=== PATIENT | male | born 1950 | race Caucasian/White ===

== ENCOUNTER → 2018-11-17 07:54 | Outpatient (CLI) | payer MEDICARE, SELFPAY ==
--- NOTE | 2018-11-17 08:30 | CT_ITS ---
CT lung screening EXAM: CT LUNG LOW DOSE WO CONTRAST HISTORY: Greater than 100 pack-year smoking history asymptomatic for lung cancer ITS.REASON: HX TOBACCO USE ORDERING PHYSICIAN: Levi Waggoner MD PATIENT AGE: 68 years COMPARISON: None TECHNIQUE: The exam was performed on a GE Light Speed [address] scanner using 2.90 mGy CTDI. A low dose helical CT CHEST was performed on a multi-detector scanner. All CT scans at the facility use one or more dose reduction, viz: automated exposure control, ma/kV adjustment per patient size (including targeted exams where dose is matched to indication, i.e. head), or iterative reconstruction technique. The LDCT was performed in a facility that meets the criteria for the screening program. Data regarding this exam was submitted to ACR which is an approved registry. The order for this exam indicates that it came as a result of a lung cancer screening counseling shard decision-making visit that included all the elements required of such a visit including smoking cessation. The radiologist interpreting this exam meets the CMS criteria for the LDCT lung cancer screening program. The exam is reported using the Lung-RADS classification scale and reported to the ACR registry. NOTE: This study was performed for the specific purposes of lung cancer screening and is not an alternative to diagnostic chest CT. RADIATION DOSE: CTDI vol(CT dose Index-volume) = 2.90mG DLP (Dose Length Product) = 111.51 mGcm FINDINGS: Scattered small mediastinal lymph nodes are present some of which contain calcification. The largest node is 1.5 x 1.3 cm. coronary artery calcifications are present. Fibrotic changes are present in the lung bases. Calcified granuloma right middle lobe. No suspicious nodules. COPD IMPRESSION: 1. Lung RADS Category: 2, benign 2. Other findings: Small lymph nodes in the mediastinum, coronary artery calcifications, COPD RECOMMENDATIONS: 12 month LDCT follow-up
--- NOTE | 2018-11-17 09:00 | US_ITS ---
US aorta HISTORY: ITS.REASON: AAA COMPARISON: FINDINGS: Screening ultrasound performed for abdominal aortic aneurysm. The abdominal aorta has an unremarkable appearance with no evidence of aneurysmal dilatation. Proximal common iliacs are unremarkable. IMPRESSION: No evidence of abdominal aortic aneurysm
== END ==
PROVIDERS: PCP Internal Medicine Adolescent Medicine; Visit Provider Internal Medicine Adolescent Medicine
DX: Z12.2 Encounter for screening for malignant neoplasm of respiratory organs (principal); Z87.891 Personal history of nicotine dependence
CPT/HCPCS: 76770

== ENCOUNTER → 2020-02-29 07:58 | Outpatient (CLI) | payer MEDICARE, SELFPAY ==
--- NOTE | 2020-02-29 08:02 | CT_ITS ---
PROCEDURE: CT LUNG SCREENING CLINICAL INDICATION: H/O TOBACCO USE Sixty pack-year smoking history, asymptomatic for lung cancer minimal COMPARISON: LUNGSCREEN CT lung screening from 11/17/2018 TECHNIQUE: The exam was performed on a GE [employer] Speed [address] scanner using 2.90 mGy CTDI. A low dose helical CT CHEST was performed on a multi-detector scanner. All CT scans at the facility use one or more dose reduction, viz: automated exposure control, ma/kV adjustment per patient size (including targeted exams where dose is matched to indication, i.e. head), or iterative reconstruction technique. The LDCT was performed in a facility that meets the criteria for the screening program. Data regarding this exam was submitted to ACR which is an approved registry. The order for this exam indicates that it came as a result of a lung cancer screening counseling shard decision-making visit that included all the elements required of such a visit including smoking cessation. The radiologist interpreting this exam meets the CMS criteria for the LDCT lung cancer screening program. The exam is reported using the Lung-RADS classification scale and reported to the ACR registry. NOTE: This study was performed for the specific purposes of lung cancer screening and is not an alternative to diagnostic chest CT. RADIATION DOSE: CTDI vol(CT dose Index-volume) = 2.90mG DLP (Dose Length Product) = 115.42 mGcm Lung Rads Category: FINDINGS: COPD changes with old granulomatous disease in scattered areas of scarring. No suspicious pulmonary nodules evident. OTHER FINDINGS: No change in the mild mediastinal adenopathy IMPRESSION: Lung rads category 1, negative Recommend annual LD CT Dictated by: Matt Clifton MD 03/18/2020 09:35 Electronically signed by Matt Clifton MD in [place] 03/18/2020 09:35
== END ==
PROVIDERS: PCP Internal Medicine Adolescent Medicine; Visit Provider Internal Medicine Adolescent Medicine
DX: Z87.891 Personal history of nicotine dependence (principal); Z12.2 Encounter for screening for malignant neoplasm of respiratory organs

== ENCOUNTER → 2020-03-22 08:23 | Outpatient (CLI) | payer MEDICARE, SELFPAY ==
[2020-03-22 11:43] LABS: Coronavirus 19 IgG Antibody Negative (Negative); Coronavirus 19 IgM Antibody Negative (Negative)
== END ==
PROVIDERS: Visit Provider Internal Medicine Gastroenterology
DX: Z01.818 Encounter for other preprocedural examination (principal)
CPT/HCPCS: 36415; 86328

== ENCOUNTER 2020-03-25 07:24 | Day surgery (SDC) | payer MEDICARE, OTHER, SELFPAY ==
[2020-03-19 09:57] VITALS: BMI 34.2
[2020-03-25] VITALS (7 sets, daily range): BP systolic 115–158; BP diastolic 62–78; PULSE 51–65; RESP 16–18; TEMP 36.2–36.6; O2SAT 97–99
[2020-03-25 08:04] LABS: POC Glucose,Bedside 145 (70-110)
--- NOTE | 2020-03-25 08:38 | P.PCN_ITS ---
[facility] Procedure Note Procedure Note:: Colonoscopy Procedure Report: Colonoscopy with cold snare polypectomy Endoscopist: Alistair Samuel II, MD Referring physician: Corbin Mackay MD Date of Procedure: March 25, 2020 Equipment: Olympus 180 variable stiffness pediatric colonoscope Sedation: MAC sedation Indication: Mr. Cook is a 69-year-old gentleman who is here for initial screening colonoscopy. He reports no abdominal pain, weight loss, change in his bowel habits or rectal bleeding. He reports no family history of colon cancer. Procedure: Prior to the procedure, a history and physical exam was performed, and patient's medications and allergies were reviewed. The risks, benefits and alternatives of the sedation and procedure were discussed with the patient. All questions were answered and informed consent was obtained. The patient was brought to the procedure room. Patient identification and proposed procedure were verified by the physician and the nurse. The patient was placed in a left lateral decubitus position and the scope was passed under direct vision. Throughout the procedure, the patient's blood pressure, pulse, and oxygen saturations were monitored continuously. The colonoscopy was accomplished without difficulty. The patient tolerated the procedure well. Findings: On digital rectal examination there was normal rectal tone with minor anal stenosis. There were no external hemorrhoids. The prostate was 2+, smooth, soft, symmetric without nodules. The colonoscope was introduced through the a nal canal to the rectum and advanced to the cecum. The ileocecal valve and appendiceal orifice were identified. The scope was advanced a short distance into the ileum which appeared grossly normal. The scope was then withdrawn into the colon. There were 7 colon polyps identified and removed (cecum/ascending x4 (3, 4, 4 and 7 mm), ascending x1 (4 mm), transverse x1 (7 mm), and sigmoid x1 (3 mm)). All of these were removed via cold snare polypectomy. There were scattered diverticuli throughout the descending and sigmoid colon (LEFT colon). The rectum itself was normal. Upon retroflexion within the rectum there were grade 2 internal hemorrhoids. The preparation was excellent throughout with Brawley Preparation Score of 9. The cecal time was 15 minutes. Impression: 1. Colonic polyps x7 (ranging in size from 3 to 7 mm) 2. Left-sided diverticulosis 3. Grade 2 internal hemorrhoids Plan: I will follow up the polyp pathology and recommend repeat colonoscopy again in 3 years based upon the polyp histology. I would encourage fiber supplementation on a long-term daily maintenance basis.
--- NOTE | 2020-03-25 08:50 | P.PN_ITS ---
[facility] Anesthesia Checklist - Structural Data Admitted From: Home Planned Operative Procedure/s: colonoscopy Consent for Planned Operative Procedure(s) Verified: Yes - Airway Assessment C-Spine Mobility Assessed: Yes TMJ Mobility Assessed: Yes Dentition: Good Dentition - Neurological Assessment Level of Consciousness: Awake, Alert, Appropriate - Anesthesia Plan Anesthesia Risk discussed: Yes Anesthesia Plan: Verified ASA Class: II Anesthesia Type: MAC [facility] History I have reviewed the patient's past medical history: Yes Medical History: Reports:: Diabetes Mellitus Type 2 Denies:: Cancer, Diabetes Mellitus Type 1, Internal Pacemaker, MRSA, Seizures *Have you ever received a pneumonia vaccine?: Yes *Have you received a flu vaccine this season?: Yes Anesthesia experience/problems:: none Other Surgeries: No: Pacemaker Amputation: No Fractures: No - *Social History Educational Level: Attended High School Smoking Status: Never smoker Alcohol Intake: current Alcohol Intake Frequency:: a few times a week Substance Use Type: denies use *Occupational Status:: employed Housing: house Household Members: spouse *Travel in the last 8 weeks: None Family Hx:: No significant family history
== END 2020-03-25 10:04 | disposition home or self-care (01) ==
LOC: OUTP 07:27
PROVIDERS: PCP Internal Medicine Adolescent Medicine; Visit Provider Internal Medicine Gastroenterology
PROC: 0DJD8ZZ Inspection of Lower Intestinal Tract, Via Natural or Artificial Opening Endoscopic (ICD-10-PCS; CPT 45378; principal; 2020-03-25 08:30)
DX: Z12.11 Encounter for screening for malignant neoplasm of colon (principal); K63.5 Polyp of colon; K57.30 Diverticulosis of large intestine without perforation or abscess without bleeding; K64.1 Second degree hemorrhoids; E11.9 Type 2 diabetes mellitus without complications; E78.5 Hyperlipidemia, unspecified; Z79.899 Other long term (current) drug therapy; Z79.84 Long term (current) use of oral hypoglycemic drugs
CPT/HCPCS: 45385; 82962; 88305

== ENCOUNTER 2020-05-18 17:42 | Emergency (ER) | payer MEDICARE, OTHER, SELFPAY ==
[2020-05-18 17:46] VITALS: BP 140/70; PULSE 75; RESP 16; TEMP 36.6; O2SAT 98; BMI 25.8
[2020-05-18 17:54] VITALS: BP 140/70; PULSE 75; RESP 16; TEMP 36.6; O2SAT 98; BMI 33.5
--- NOTE | 2020-05-18 17:59 | HMH.EDUTC ---
[facility] [place] Clinical Impression: Foreign body in ear Qualifiers: Encounter type: initial encounter Laterality: right Qualified Code(s): T16.1XXA - Foreign body in right ear, initial encounter Disposition: Home, Self-Care Condition on Discharge: Good Instructions: DI for Removal of Foreign Body From Ear Additional Instructions: Nothing to eat or Drink after Midnight on WednesdayMay 19, then be in Dr Jimenez's [facility] Wednesday at noon for further evaluation and removal of Foreign body in ear *Take medication as prescribed Over the counter Motrin and/or Tylenol as directed on package for pain DO NOT STICK ANYTHING IN YOUR EAR Return if needed Straight to ER if any life threatening symptoms Prescriptions: Amoxicillin [Amoxicillin 500mg Cap] 500 mg PO TID #30 cap Transmission Status: Received by [id number] Referrals: Corbin Mackay MD [Primary Care Provider] - As needed Jim Jimenez MD [Staff Physician] - 05/20/20 12:00 pm (NPO after Midnight on Wednesday, be in clinic at 12:00 noon for removal and further evaluation) Time of Disposition: 18:30 Medical Decision Making - Sam Inquiry Pt receiving controlled substance: No Sam was queried for this patient: No Vital Signs: 05/18/20 17:46 05/18/20 17:54 05/18/20 18:42 Temperature 98 F 98 F 98 F Temperature Source Temporal Artery Scan Oral Oral Pulse Rate 75 Pulse Rate [Right] 75 75 Respiratory Rate 16 16 16 Blood Pressure 140/70 Blood Pressure [Right Arm] 140/70 140/70 Blood Pressure Mean [Right Arm] 93 93 Blood Pressure Source Automatic Cuff Blood Pressure Source [Right Arm] Automatic Cuff Automatic Cuff Blood Pressure Position Sitting Blood Pressure Position [Right Arm] Sitting Sitting 02 Sat by Pulse Oximetry 98 98 Oxygen Delivery Method Room Air Room Air Room Air Orders (Tests/Meds): ED MEDICATIONS Discontinued Medications Generic Name Dose Route Start Last Admin Trade Name Freq PRN Reason Stop Dose Admin Amoxicillin 500 mg 05/18/20 18:41 05/18/20 18:42 Amoxicillin 500mg Capsule PO 05/18/20 18:42 500 mg ONCE ONE Administration Protocol - Physician Consults Physician Consulted: Tony Time: 18:00 Reason -: ENT Eval/Care Comment/Response: Spoke with Dr Jimenez, advised him that patient reports losing piece of hearing aid that was clear plastic and appears to have clear plastic FB in right ear similar to what is described as lost hearing aid piece. Dr Jimenez advised to place him on Amoxil 500mg TID and have him come into clinic at noon on Wednesday and be NPO for removal [facility] H[place] - General Stated complaint: right ear pain Time Seen by Provider: 05/18/20 17:59 Mode of Arrival: Ambulatory Source of Information: Patient Limitations: No Limitations Description of Symptoms (Recalled from Triage Doc. by RN): right ear pain since wednesday. HEENT Symptoms (Recalled from RN notes): Yes Resp Symptoms (Recalled from RN notes): No Skin Symptoms (Recalled from RN notes): No MS Symptoms (Recalled from RN notes): No Functional Status (Recalled from RN notes): wnl - History of Present Illness Provider Complaint: Patient states that he went riding over the weekend and it was raining and rain hit in his right ear State that he was fine after that then started having pain in his right ear on Wednesday and has continued to have pain on and off since State that at times it feels like a sharp pain in his right ear States that he wasnt sure if it may be infected or not - Related Data Home Medications Medication Instructions Recorded Confirmed Cetirizine HCl [Zyrtec] 10 mg PO DAILY 03/19/20 03/25/20 Metformin HCl [Metformin 1000mg 1,000 mg PO BID 03/19/20 03/25/20 Tablets] Rosuvastatin Calcium [Crestor 40mg 40 mg PO DAILY 03/19/20 03/25/20 Tablets] tadalafiL [Cialis] 10 mg PO DAILY 03/19/20 03/25/20 Previous Rx's Medication Instructions Recorded Amoxicillin [Amoxicillin
[2020-05-18 18:42] VITALS: BP 140/70; PULSE 75; RESP 16; TEMP 36.6; O2SAT 98
== END 2020-05-18 18:43 | disposition home or self-care (01) ==
PROVIDERS: Emergency Provider Nurse Practitioner; PCP Internal Medicine Adolescent Medicine
DX: T16.1XXA Foreign body in right ear, initial encounter (principal); E11.9 Type 2 diabetes mellitus without complications; Z79.84 Long term (current) use of oral hypoglycemic drugs
CPT/HCPCS: 99201

== ENCOUNTER → 2021-03-17 17:50 | Outpatient (CLI) | payer MEDICARE, SELFPAY ==
[2021-03-17 18:32] LABS: Hemoglobin A1C 6.5 % (4.0-6.0)
[2021-03-17 19:00] LABS: Alanine Aminotransferase 17 U/L (12-78); Albumin Level 4.4 g/dl (3.5-5.0); Albumin/Globulin Ratio 1.8 (1.1-1.8); Alkaline Phosphatase 63 U/L (38-126); Anion Gap 13.7 mEq/L (5-15); Aspartate Amino Transferase 28 U/L (17-59); Bilirubin,Total 0.6 mg/dl (0.2-1.3); Blood Urea Nitrogen 12 mg/dl (9-20); Calcium 9.3 mg/dl (8.4-10.2); Carbon Dioxide 27 mmol/L (22.0-30.0); Chloride 105 mmol/L (98-107); Chol/HDL Ratio 2.8 (1-3.5); Cholesterol 116 mg/dl (140-200); Estimated Glomerular Filt Rate 112 ml/min (>60); GFR (African American) 135 ML/MIN (>60); Globulin 2.4 g/dL (1.3-3.2); Glucose 129 mg/dl (74-100); HDL Cholesterol 41 mg/dl (40-60); Potassium 4.7 mmoL/L (3.5-5.1); Sodium 141 mmol/L (136-145); Total Protein,Serum 6.8 g/dl (6.3-8.2); Triglycerides 140 mg/dl (30-150); VLDL Cholesterol 28 mg/dL (0-40)
[2021-03-17 19:11] LABS: Direct LDL Cholesterol 50.78 mg/dL (100-129)
== END ==
PROVIDERS: Visit Provider Internal Medicine Adolescent Medicine
DX: E11.9 Type 2 diabetes mellitus without complications (principal); E78.01 Familial hypercholesterolemia; Z79.84 Long term (current) use of oral hypoglycemic drugs
CPT/HCPCS: 80053; 80061; 83036

== ENCOUNTER → 2021-04-04 14:42 | Outpatient (CLI) | payer MEDICARE, SELFPAY ==
--- NOTE | 2021-04-04 14:45 | CT_ITS ---
PROCEDURE: CT LUNG SCREENING CLINICAL INDICATION: H/O NICOTINE DEPENDENCE Former smoker Quit smoking 13 years ago 90 pack year smoking history COMPARISON: CT LUNGSCREEN CT lung screening from 11/17/[address] LUNG SCREENING from 02/29/2020 TECHNIQUE: The exam was performed on a [employer] Light Speed [address] scanner using 2.90 mGy CTDI. A low dose helical CT CHEST was performed on a multi-detector scanner. All CT scans at the facility use one or more dose reduction, viz: automated exposure control, ma/kV adjustment per patient size (including targeted exams where dose is matched to indication, i.e. head), or iterative reconstruction technique. The LDCT was performed in a facility that meets the criteria for the screening program. Data regarding this exam was submitted to ACR which is an approved registry. The order for this exam indicates that it came as a result of a lung cancer screening counseling shard decision-making visit that included all the elements required of such a visit including smoking cessation. The radiologist interpreting this exam meets the CMS criteria for the LDCT lung cancer screening program. The exam is reported using the Lung-RADS classification scale and reported to the ACR registry. NOTE: This study was performed for the specific purposes of lung cancer screening and is not an alternative to diagnostic chest CT. RADIATION DOSE: CTDI vol(CT dose Index-volume) = 2.90mG DLP (Dose Length Product) = 116.46 mGcm FINDINGS: COPD changes with scattered areas of scarring There is a new 6 mm ground-glass opacity in the right upper lobe series 3, image 30. There is evidence of old granulomatous disease. An additional small opacity is present in the right lower lobe at 3 mm image 50. A 7 mm nodule is noted in the extreme left lung base along the hemidiaphragm. OTHER FINDINGS: Coronary artery calcifications are noted. There are mildly prominent mediastinal lymph nodes once again noted which are unchanged. IMPRESSION: Lung-RADS Category 4A Suspicious. There is 3 new pulmonary nodular opacities compared to the previous exam the largest in the left lung base at [address] follow-up with contrast Follow-up: [address] Chest with contrast Dictated by: Matt Clifton MD 04/07/2021 08:11 Matt Clifton MD in [place] 04/07/2021 08:11
== END ==
PROVIDERS: PCP Internal Medicine Adolescent Medicine; Visit Provider Internal Medicine Adolescent Medicine
DX: Z87.891 Personal history of nicotine dependence (principal); Z12.2 Encounter for screening for malignant neoplasm of respiratory organs
CPT/HCPCS: 71271

== ENCOUNTER → 2021-10-14 12:14 | Outpatient (CLI) | payer MEDICARE, SELFPAY | PROVIDERS: PCP Internal Medicine Adolescent Medicine; Visit Provider Internal Medicine Adolescent Medicine | DX: Z20.822 Contact with and (suspected) exposure to COVID-19 (principal) | CPT/HCPCS: C9803; U0003; U0005 ==

== ENCOUNTER → 2021-10-31 15:09 | Outpatient (CLI) | payer MEDICARE, SELFPAY ==
--- NOTE | 2021-10-31 15:11 | CT_ITS ---
FINAL REPORT CLINICAL HISTORY: PULMONARY NODULES, hx smoker COMPARISON: April 04, 2021 FINDINGS: Axial images were obtained from the lung apex to the mid abdomen by computed tomography. Coronal reformatted images were obtained. This study was performed with techniques to keep radiation doses as low as reasonably achievable, (ALARA). Individualized dose reduction techniques using automated exposure control or adjustment of mA and/or kV according to the patient's size were employed. There is no axillary adenopathy. There are multiple small and borderline size mediastinal lymph nodes. Heart size is normal. There is no pericardial or pleural effusion. Limited images of the upper abdomen are unremarkable. The right upper lobe ground-glass nodule has resolved. The previously identified 3 mm and 7 mm nodules are not identified. There is mild scarring or atelectasis in the lung bases. No suspicious infiltrate or nodule is identified. IMPRESSION: Interval resolution of previously identified nodules. Reviewed, Interpreted and Dictated by Manish Fortune III, MD Transcribed by Duncan Moreland Authenticated by Manish Fortune III, MD on 10/31/2021 03:53:18 PM [facility]
== END ==
PROVIDERS: PCP Internal Medicine Adolescent Medicine; Visit Provider Internal Medicine Adolescent Medicine
DX: R91.8 Other nonspecific abnormal finding of lung field (principal)
CPT/HCPCS: 71250

== ENCOUNTER → 2023-09-16 08:28 | Outpatient (CLI) | payer MEDICARE, SELFPAY ==
[2023-09-16 17:07] LABS: Basophils % 0.4 % (0.1-2.0); Eosinophils # 0.1 K/mm3 (0.0-0.4); Eosinophils % 1.6 % (0.1-12.0); Lymphocytes # 2.2 K/mm3 (0.7-4.5); Mean Corpuscular HGB Conc 34.2 g/dL (31.8-35.4); Mean Corpuscular Hemoglobin 35.3 pg (27.0-31.2); Mean Corpuscular Volume 103.3 fl (80-94); Mean Platelet Volume 8.9 fl (7.4-10.4); Monocytes # 0.4 K/mm3 (0.1-1.0); Monocytes % 5.3 % (1.7-9.3); Neutrophils # 4.5 K/mm3 (1.8-7.8); Neutrophils % 62.6 % (37.0-80.0); Platelet Count 188 K/mm3 (142-424); Red Blood Count 4.26 M/mm3 (4.60-6.20); White Blood Count 7.2 K/mm3 (4.8-10.8)
[2023-09-16 17:14] LABS: Alanine Aminotransferase 24 U/L (12-78); Albumin Level 4.1 g/dl (3.5-5.0); Albumin/Globulin Ratio 1.4 (1.1-1.8); Alkaline Phosphatase 69 U/L (38-126); Anion Gap 9.2 mEq/L (5-15); Aspartate Amino Transferase 38 U/L (17-59); Bilirubin,Total 0.7 mg/dl (0.2-1.3); Blood Urea Nitrogen 13 mg/dl (9-20); Calcium 8.5 mg/dl (8.4-10.2); Carbon Dioxide 25 mmol/L (22.0-30.0); Chloride 102 mmol/L (98-107); Chol/HDL Ratio 4.2 (1-3.5); Cholesterol 195 mg/dl (140-200); Estimated Glomerular Filt Rate 95 ml/min (>60); GFR (African American) 115 ML/MIN (>60); Globulin 2.9 g/dL (1.3-3.2); Glucose 117 mg/dl (74-100); HDL Cholesterol 46 mg/dl (40-60); Potassium 4.2 mmoL/L (3.5-5.1); Sodium 132 mmol/L (136-145); Triglycerides 141 mg/dl (30-150); VLDL Cholesterol 28 mg/dL (0-40)
[2023-09-16 17:25] LABS: Direct LDL Cholesterol 118.95 mg/dL (100-129)
[2023-09-16 17:44] LABS: Thyroid Stimulating Hormone 0.88 uIU/mL (0.465-4.68)
[2023-09-16 17:54] LABS: Hemoglobin A1C 6.6 % (4.0-6.0)
== END ==
PROVIDERS: PCP Family Medicine; Visit Provider Family Medicine
DX: E11.9 Type 2 diabetes mellitus without complications (principal); I10 Essential (primary) hypertension; I48.91 Unspecified atrial fibrillation; Z79.84 Long term (current) use of oral hypoglycemic drugs; Z87.891 Personal history of nicotine dependence
CPT/HCPCS: 80053; 80061; 83036; 84443; 85025

== ENCOUNTER → 2023-09-17 08:59 | Outpatient (CLI) | payer MEDICARE, SELFPAY ==
--- NOTE | 2023-09-17 09:04 | XR_ITS ---
FINAL REPORT CLINICAL HISTORY: left leg numb FINDINGS: LUMBAR SPINE 2 views were obtained. There is no acute fracture. There is no malalignment. There is prominent anterior osteophyte formation throughout the lumbar spine. Facet sclerosis is noted in the lower lumbar spine. There is no soft tissue abnormality. IMPRESSION: Degenerative changes with no acute bony abnormality. Reviewed, Interpreted and Dictated by Alejo John MD Transcribed by Harmony Radford Authenticated and [facility]
== END ==
PROVIDERS: PCP Family Medicine; Visit Provider Family Medicine
DX: M54.50 Low back pain, unspecified (principal)
CPT/HCPCS: 72100

== ENCOUNTER 2024-04-25 09:30 | Day surgery (SDC) | payer MEDICARE, SELFPAY ==
[2024-04-25 09:46] VITALS: BP 156/87; PULSE 72; RESP 16; TEMP 36.6; O2SAT 98
[2024-04-25] MEDS: LACTATED RINGERS 1000ML 1,000 ML 25 ML IV (09:53)
--- NOTE | 2024-04-25 09:54 | HMH.SCOPE ---
Procedure: Date: 04/25/24 Patient Date of :: 1950 Procedure Performed:: Colonoscopy with polypectomy Indications:: History of colon polyps Colonoscopy in February 2020 (Dr. SAMUEL) hemorrhoids and left-sided diverticulosis. 7 polyps were excised. Performing Provider:: Zane Bang MD Referring Provider:: . Sedation:: Monitored anesthesia care Procedure:: After informed consent was obtained the patient was taken to the endoscopy suite. Sedation ensued after the patient was transferred to the left lateral decubitus position. Pulse, blood pressure, and oxygen saturation were monitored throughout the procedure. Digital rectal exam revealed no significant abnormality. The colonoscope was placed in position. The entire colon was evaluated. The colonoscope was carefully removed and the patient was transferred to recovery in stable condition. Please see findings and specimens below for detail. Findings:: Bowel preparation moderate Moderate spasticity/lack of relaxation Mild anal stenosis Hemorrhoidal cushions Mild sigmoid diverticulosis Polyps (see specimens) Specimens:: Sessile hepatic flexure polyp (cold snare) 3 adjacent splenic flexure polyps (cold snare) Polyp at 7 cm (cold snare) Recommendations:: Timing of repeat colonoscopy is pending pathology will likely be between 3-5 years secondary to history of polyps, moderate bowel preparation, and moderate spasticity/lack of relaxation. Will refer back to Dr. Alistair Samuel for next colonoscopy. Complications:: No immediate Estimated blood obtained (mL): 1 Colonoscopy Component Colonoscopy Component Was a colonoscopy performed during today's procedure?: Yes Recommended follow up colonoscopy of at least 10 years?: No If no, follow up colonoscopy recommended in ___ years?: (See above) Reason for not recommending >/= 10 yr follow-up interval?: (See above)
[2024-04-25 09:59] LABS: POC Glucose,Bedside 165 (70-110)
[2024-04-25 10:00] VITALS: O2SAT 97
[2024-04-25 10:47] VITALS: BP 114/69; PULSE 82; RESP 18; TEMP 36.9; O2SAT 95
[2024-04-25 10:57] VITALS: BP 118/68; PULSE 72; RESP 18; O2SAT 96
[2024-04-25 11:07] VITALS: BP 113/78; PULSE 68; RESP 18; O2SAT 96
[2024-04-25 11:18] VITALS: BP 118/65; PULSE 62; RESP 18; O2SAT 97
--- NOTE | 2024-04-25 11:40 | EXP.ANES.CKL ---
[facility] Disclaimer: The information contained in this section may have been updated after the patient was seen, as this information can be updated by other users. 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 current occupational exposures/hazards: No caffeine: Yes [facility] Anesthesia Checklist Patient Identification Patient Identification: Arm Band and Family Structural Data Admitted From: Home Planned Operative Procedure/s: colonoscopy Consent for Planned Operative Procedure(s) Verified: Yes Verified Documents: Surgical Consent and History and Physical NPO Status Verified Time NPO: 00:00 Additional verifications Patient : No Anesthesia Reactions: No Hx Blood Transfusions: No Blood Transfusion Reaction: No Cephalosporin Allergy: No Previous Colonoscopy: Yes Airway Assessment Mallampati Score:: Class I C-Spine Mobility Assessed: Yes TMJ Mobility Assessed: Yes Dentition: Poor Dentition Neurological Assessment Level of Consciousness: Awake, Alert, Appropriate and Follows Commands Hx Seizures: No Numbness or tingling in extremities: No Anesthesia Plan Anesthesia Risk discussed: Yes ASA Class: III Anesthesia Type: MAC Preoperative Comments Pre-Operative Comments: Hypertension. NIDDM.
== END 2024-04-25 11:19 | disposition home or self-care (01) ==
PROVIDERS: PCP Family Medicine; Visit Provider Surgery
PROC: 0DJD8ZZ Inspection of Lower Intestinal Tract, Via Natural or Artificial Opening Endoscopic (ICD-10-PCS; CPT 45385; principal; 2024-04-25 10:30)
DX: Z86.010 Personal history of colon polyps (principal); K62.4 Stenosis of anus and rectum; K64.9 Unspecified hemorrhoids; K57.30 Diverticulosis of large intestine without perforation or abscess without bleeding; D12.3 Benign neoplasm of transverse colon; K63.5 Polyp of colon; E11.8 Type 2 diabetes mellitus with unspecified complications
CPT/HCPCS: 45385; 82962; 88305; J2704; J7120

== ENCOUNTER 2024-07-20 11:50 | Outpatient (CLI) | payer MEDICARE, SELFPAY ==
[2024-07-20 12:08] LABS: Basophils # 0.1 K/mm3 (0-0.2); Basophils % 1.1 % (0.1-2.0); Eosinophils # 0.2 K/mm3 (0.0-0.4); Eosinophils % 2.4 % (0.1-12.0); Hematocrit 42.5 % (42.0-52.0); Hemoglobin 14.8 g/dL (14.1-18.0); Lymphocytes # 1.8 K/mm3 (0.7-4.5); Lymphocytes % 27.8 % (10-50); Mean Corpuscular HGB Conc 34.9 g/dL (31.8-35.4); Mean Corpuscular Hemoglobin 34.9 pg (27.0-31.2); Mean Corpuscular Volume 100.1 fl (80-94); Mean Platelet Volume 8.4 fl (7.4-10.4); Monocytes # 0.3 K/mm3 (0.1-1.0); Monocytes % 4.6 % (1.7-9.3); Neutrophils # 4.1 K/mm3 (1.8-7.8); Platelet Count 170 K/mm3 (142-424); Red Blood Count 4.25 M/mm3 (4.60-6.20); Red Cell Distribution Width 13.3 % (11.5-17.5); White Blood Count 6.4 K/mm3 (4.8-10.8)
[2024-07-20 12:29] LABS: Anion Gap 9.6 mEq/L (5-15); Blood Urea Nitrogen 16 mg/dl (9-20); Calcium 9.1 mg/dl (8.4-10.2); Carbon Dioxide 26 mmol/L (22.0-30.0); Chloride 104 mmol/L (98-107); Estimated Glomerular Filt Rate 111 ml/min (>60); GFR (African American) 134 ML/MIN (>60); Glucose 176 mg/dl (74-100); Potassium 4.6 mmoL/L (3.5-5.1); Sodium 135 mmol/L (136-145)
== END 2024-07-20 23:59 | disposition home or self-care (01) ==
LOC: LAB 11:51
PROVIDERS: PCP Family Medicine; Visit Provider Surgery
DX: L02.91 Cutaneous abscess, unspecified (principal)
CPT/HCPCS: 36415; 80048; 85025

== ENCOUNTER 2024-07-21 11:55 | Outpatient (CLI) | payer MEDICARE, SELFPAY ==
--- NOTE | 2024-07-21 12:22 | ECG_ITS ---
APPROVED REPORT Exam: Resting ECG HR:50 bpm ECG Measurements Heart Rate 50 AXES QRSd 106 QRS 199 QT 449 T 156 QTc 421 Conclusion ATRIAL FIBRILLATION WITH SLOW VENTRICULAR RESPONSE POSSIBLE RIGHT VENTRICULAR HYPERTROPHY [SOME/ALL OF: PROMINENT R IN V1, LATE TRANSITION, RAD, GUILLERMO, SSS] ABNORMAL ECG UNCONFIRMED REPORT Electronically signed by : Levi Waggoner MD 07/24/2024 08:39:49
== END 2024-07-21 23:59 | disposition home or self-care (01) ==
LOC: PREOP 11:56
PROVIDERS: PCP Family Medicine; Visit Provider Surgery
DX: I48.91 Unspecified atrial fibrillation (principal); R94.31 Abnormal electrocardiogram [ECG] [EKG]
CPT/HCPCS: 93005

== ENCOUNTER 2024-07-27 06:01 | Day surgery (SDC) | payer MEDICARE, SELFPAY ==
[2024-07-21 12:18] VITALS: BMI 34.2
[2024-07-27] VITALS (10 sets, daily range): BP systolic 103–137; BP diastolic 59–75; PULSE 48–61; RESP 16–18; TEMP 36.2–36.6; O2SAT 93–99
[2024-07-27] MEDS: LACTATED RINGERS 1000ML 1,000 ML 25 ML IV (06:40)
[2024-07-27 06:50] LABS: POC Glucose,Bedside 184 (70-110)
[2024-07-27] MEDS: CLINDAMYCIN PHOSPHATE/D5W 900 MG/50 ML PIGGYBACK 100 MG IV (07:09)
[2024-07-27] MEDS: ROPIVACAINE 0.5% 30ML VIAL 150 MG (07:24)
[2024-07-27] MEDS: LIDOCAINE 1% 20ML MDV 20 ML (07:24)
--- NOTE | 2024-07-27 07:33 | P.PNANES_ITS ---
[facility] Disclaimer: The information contained in this section may have been updated after the patient was seen, as this information can be updated by other users. 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 [employer] current occupational exposures/hazards: No caffeine: Yes [facility] Anesthesia Checklist Patient Identification Patient Identification: Arm Band Structural Data Admitted From: Home Planned Operative Procedure/s: I&D Right Thigh Abscess Consent for Planned Operative Procedure(s) Verified: Yes Verified Documents: Surgical Consent and History and Physical NPO Status Verified Time NPO: 00:00 Additional verifications Anesthesia Reactions: No Hx Blood Transfusions: No Blood Transfusion Reaction: No Cephalosporin Allergy: No Airway Assessment Mallampati Score:: Class II C-Spine Mobility Assessed: Yes TMJ Mobility Assessed: Yes Dentition: Edentulous Neurological Assessment Level of Consciousness: Awake, Alert and Appropriate Anesthesia Plan Anesthesia Risk discussed: Yes Anesthesia Plan: Verified ASA Class: III Anesthesia Type: General
--- NOTE | 2024-07-27 07:47 | P.PNANES_ITS ---
[facility] Anesthesia Record Part I Anesthesia Record I Intake, IV Amount: 400 Hydration: Adequate Estimated blood loss (mL): 5 Urine output (mL): 0 Blood Products used (#): none Blood Pressure: 108/59 SaO2: 93 Pulse Rate: 55 Airway Patency: Patent Respiratory Rate: 16 Temperature: 97.4 F Patient is:: Drowsy, Oral/Nasal airway and Stable Stable to PACU at:: 07:45
--- NOTE | 2024-07-27 08:18 | P.OP_ITS ---
Date of procedure: 07/27/24 Pre-op Diagnosis:: Right medial proximal thigh abscess Post-op Diagnosis:: Chronic abscessed hidradenitis Procedure performed:: Incision and drainage right medial proximal thigh abscess with debridement of skin and subcutaneous tissue Surgeon:: Manish Dunbar MD RADAR ENGINEER:: Sb Dee Anesthesia: local and LMA Estimated blood loss (mL): 7 Operative findings:: Consistent with subcutaneous hidradenitis with seroma and granulation tissue Operative note:: Consent was obtained patient was taken the operating room. He was given preoperative intravenous antibiotics. In the operating room he was placed in a supine position. General anesthesia was induced via LMA. He was then positioned in the lithotomy position. The area was prepped and draped in the standard surgical fashion. There was some fluid and evidence of fluctuance with overlying skin changes. Limited incision was made. There was serous fluid present which exuded from the wound. This was sent for culture. Incision was m pau somewhat elliptical fashion debriding the overlying inflamed skin. Underlying tissue was consistent with hidradenitis with some inflamed somewhat purulent appearing granulation tissue. There was some tunneling superiorly and the overlying skin was excised. The wound was not very deep, less than 1 cm. Once overlying skin was excised the inflamed granulation tissue was debrided using curette. Hemostasis was achieved with electrocautery. Wound was irrigated. Local anesthetic was infiltrated. Wound was packed with dry plain packing gauze. Clean dry sterile dressing was applied. Condition: stable Disposition: PACU Complications:: None immediately apparent
[2024-07-27 08:26] LABS: POC Glucose,Bedside 182 (70-110)
--- NOTE | 2024-07-27 08:33 | P.PNANES_ITS ---
[facility] Anesthesia Record Part II Anesthesia Record Part II Discharge Time: 08:15 Destination: Surgical Day Care (OP Surgery) PACU nurse assessment reviewed?: Yes Patient Condition:: Good Anesthesia Complications:: None Swallowing reflex intact?: Yes Airway Patency: Patent Cyanosis?: No Blood Pressure: 137/68 SaO2: 97 Respiratory Rate: 16 Pulse Rate: 51 Temperature: 97.5 F Mental Status: Alert & Oriented Pain level:: 0 Nausea and/or vomitting:: None Intake, IV Amount: 0 Hydration: Adequate
== END 2024-07-27 08:46 | disposition home or self-care (01) ==
PROVIDERS: PCP Family Medicine; Visit Provider Surgery
PROC: (CPT 10060; principal; 2024-07-27 07:30)
DX: L73.2 Hidradenitis suppurativa (principal); E11.8 Type 2 diabetes mellitus with unspecified complications
CPT/HCPCS: 10060; 82962; 87070; 87205; 96374; J0736; J1100; J2405; J3010; J7120

== ENCOUNTER 2024-09-07 09:55 | Outpatient (CLI) | payer MEDICARE, SELFPAY ==
[2024-09-07 16:54] LABS: Basophils % 0.7 % (0.1-2.0); Eosinophils # 0.1 K/mm3 (0.0-0.4); Eosinophils % 1.2 % (0.1-12.0); Hematocrit 40.8 % (42.0-52.0); Hemoglobin 13.7 g/dL (14.1-18.0); Lymphocytes # 1.2 K/mm3 (0.7-4.5); Lymphocytes % 20.8 % (10-50); Mean Corpuscular HGB Conc 33.6 g/dL (31.8-35.4); Mean Corpuscular Hemoglobin 33.6 pg (27.0-31.2); Mean Platelet Volume 9.4 fl (7.4-10.4); Monocytes # 0.4 K/mm3 (0.1-1.0); Monocytes % 6.5 % (1.7-9.3); Neutrophils # 3.9 K/mm3 (1.8-7.8); Neutrophils % 70.8 % (37.0-80.0); Platelet Count 151 K/mm3 (142-424); Red Blood Count 4.08 M/mm3 (4.60-6.20); Red Cell Distribution Width 13.3 % (11.5-17.5); White Blood Count 5.5 K/mm3 (4.8-10.8)
[2024-09-07 17:11] LABS: Alanine Aminotransferase 24 U/L (12-78); Albumin Level 3.8 g/dl (3.5-5.0); Albumin/Globulin Ratio 1.6 (1.1-1.8); Alkaline Phosphatase 75 U/L (38-126); Anion Gap 9.9 mEq/L (5-15); Aspartate Amino Transferase 38 U/L (17-59); Bilirubin,Total 0.8 mg/dl (0.2-1.3); Blood Urea Nitrogen 14 mg/dl (9-20); Calcium 8.9 mg/dl (8.4-10.2); Carbon Dioxide 26 mmol/L (22.0-30.0); Chloride 105 mmol/L (98-107); Chol/HDL Ratio 4.3 (1-3.5); Cholesterol 153 mg/dl (140-200); Estimated Glomerular Filt Rate 95 ml/min (>60); GFR (African American) 115 ML/MIN (>60); Globulin 2.4 g/dL (1.3-3.2); Glucose 185 mg/dl (74-100); HDL Cholesterol 36 mg/dl (40-60); Potassium 4.9 mmoL/L (3.5-5.1); Sodium 136 mmol/L (136-145); Total Protein,Serum 6.2 g/dl (6.3-8.2); Triglycerides 116 mg/dl (30-150); VLDL Cholesterol 23 mg/dL (0-40)
[2024-09-07 17:18] LABS: Creatinine,Urine Random 86 mg/dL (Not Estab.)
[2024-09-07 17:21] LABS: Direct LDL Cholesterol 96.52 mg/dL (100-129)
[2024-09-07 17:22] LABS: Microalbumin/Creatinine Ratio 11.1
[2024-09-07 17:47] LABS: Hemoglobin A1C 8.3 % (4.0-6.0)
[2024-09-08 06:11] LABS: HCV Ab Non Reactive (Non Reactive)
[2024-09-08 16:55] LABS: HIV Combo NEGATIVE (Negative)
== END 2024-09-07 23:59 | disposition home or self-care (01) ==
LOC: LAB.DROPOF 09-08 15:11
PROVIDERS: PCP Family Medicine; Visit Provider Family Medicine
DX: I10 Essential (primary) hypertension (principal); E11.9 Type 2 diabetes mellitus without complications; Z11.59 Encounter for screening for other viral diseases; Z11.4 Encounter for screening for human immunodeficiency virus [HIV]
CPT/HCPCS: 80053; 80061; 82043; 82570; 83036; 85025; 86803; 87389

== ENCOUNTER 2024-09-12 12:41 | Outpatient (CLI) | payer MEDICARE, SELFPAY ==
--- NOTE | 2024-09-12 12:44 | XR_ITS ---
FINAL REPORT CLINICAL HISTORY: left shoulder pain COMPARISON: None FINDINGS: LEFT SHOULDER 3 views of the left shoulder were obtained. There is no acute fracture or dislocation. Visualized joint spaces are normally aligned. Soft tissues are unremarkable. IMPRESSION: No acute bony abnormality. Reviewed, Interpreted and Dictated by Giselle Maldonado MD Transcribed by Mai Truong Authenticated and [facility]
== END 2024-09-12 23:59 | disposition home or self-care (01) ==
LOC: RAD 12:42
PROVIDERS: PCP Family Medicine; Visit Provider Physician Assistant Surgical
DX: M25.512 Pain in left shoulder (principal)
CPT/HCPCS: 73030

== ENCOUNTER 2024-12-01 10:27 | Emergency (ER) | payer MEDICARE, SELFPAY ==
[2024-12-01] VITALS (10 sets, daily range): BP systolic 133–167; BP diastolic 74–88; PULSE 55–69; RESP 13–19; TEMP 36.7–36.9; O2SAT 97–99; BMI 34.2
[2024-12-01 11:04] LABS: Basophils # 0.1 K/mm3 (0-0.2); Basophils % 0.5 % (0.1-2.0); Eosinophils % 0.3 % (0.1-12.0); Hematocrit 39.4 % (42.0-52.0); Hemoglobin 13.6 g/dL (14.1-18.0); Lymphocytes # 1.2 K/mm3 (0.7-4.5); Lymphocytes % 12.4 % (10-50); Mean Corpuscular HGB Conc 34.5 g/dL (31.8-35.4); Mean Corpuscular Hemoglobin 34.5 pg (27.0-31.2); Mean Platelet Volume 10.2 fl (7.4-10.4); Monocytes # 0.5 K/mm3 (0.1-1.0); Monocytes % 4.5 % (1.7-9.3); Neutrophils % 81.2 % (37.0-80.0); Platelet Count 166 K/mm3 (142-424); Red Blood Count 3.94 M/mm3 (4.60-6.20); Red Cell Distribution Width 12.8 % (11.5-17.5); White Blood Count 9.9 K/mm3 (4.8-10.8)
--- NOTE | 2024-12-01 11:17 | CT_ITS ---
FINAL REPORT TECHNIQUE: Pre-and postcontrast images of the abdomen through the pelvis were performed by computed tomography. Extensive 3-D reconstruction images were performed. A CTA was performed. Pre and post imaging was performed under GI bleed protocol. This study was performed with techniques to keep radiation doses as low as reasonably achievable (ALARA). Individualized dose reduction techniques using automated exposure control or adjustment of mA and/or kV according to the patient's size were employed. CLINICAL HISTORY: Lower gastrointestinal bleeding, abdominal pain COMPARISON: none FINDINGS: ABDOMEN: The lung bases are clear. Solid organs are negative. The patient is status post cholecystectomy. There is no evidence of bowel obstruction or bowel wall thickening. There is moderate fecal impaction. A small umbilical hernia is noted containing fat. PELVIS: There are no changes of diverticulitis. The bladder is decompressed. The prostate is unremarkable. CTA: There is moderate diffuse plaque disease of the aorta. Mesenteric vessels are widely patent. The renal arteries are widely patent. There is no extravasation of contrast within the GI tract to localize the area of active GI bleed.. IMPRESSION: No CT findings of active GI bleed. Fecal impaction without evidence of bowel obstruction or bowel wall thickening. Reviewed, Interpreted and Dictated by Giselle Maldonado MD Transcribed by Na Ludwig Authenticated and [facility]
--- NOTE | 2024-12-01 11:18 | HMH.EDGENADL ---
Discharge Plan Disposition Patient Disposition: Home, Self-Care Condition: Good Prescriptions Prescriptions: New hydrocortisone 1 % cream 1 applic topical DAILY PRN (Reason: rash) Qty: 28.35 0RF No Action Eliquis 5 mg tablet 5 mg PO BID Patient Comments: TAKE 1 TABLET BY MOUTH TWICE DAILY Januvia 100 mg tablet 100 mg PO DAILY Qty: 30 2RF lisinopril 5 mg tablet 5 mg PO DAILY 90 Days Qty: 90 0RF (DME) Accu-Chek Guide test strips Strip See Rx Instructions .Route Qty: 100 2RF Rx Instructions: TEST GLUCOSE TID (DME) blood-glucose meter [Accu-Chek Guide Glucose Meter] Misc See Rx Instructions .Route Qty: 1 0RF Rx Instructions: Check glucose TID metoprolol succinate 25 mg tablet extended release 24 hr 25 mg PO DAILY 90 Days Qty: 90 0RF Referrals Follow up/Referrals: Eduardo Newell MD [Primary Care Provider] - See instructions Instructions Patient Instructions: DI for Gastrointestinal Bleeding Print Language Print Language: [place] Discharge ED Provider: Michelle Sierra General Adult HPI General Chief complaint: GI Bleed Stated complaint: bleeding from Rectum/pain Time Seen by Provider: 12/01/24 11:02 History of Present Illness HPI narrative: Patient is a 74-year-old past medical history significant for A-fib on Eliquis presents to the emergency department for rectal pain. Patient has had 2 days of wiping blood on the toilet paper. Blood does not fill the toilet bowl. Patient is chronically constipated and takes 1 capful of MiraLAX and a stool softener without improvement of symptoms. No trauma to the rectum. No dysuria or increased urinary frequency. + tenesmus no lightheadedness or feeling like he is going to pass out. Yesterday patient had diffuse abdominal cramping that is since resolved. No nausea or vomiting Related Data Home Medications ?Medication ?Instructions ?Recorded ?Confirmed apixaban 5 mg tablet (Eliquis) 5 mg PO BID a-fib 09/16/23 12/01/24 Previous Rx's ?Medication ?Instructions ?Recorded sitagliptin phosphate 100 mg 100 mg PO DAILY #30 tabs 09/11/24 tablet (Januvia) lisinopril 5 mg tablet 5 mg PO DAILY HTN 90 days #90 tabs 09/14/24 blood sugar diagnostic (Accu-Chek #100 ea 09/22/24 Guide test strips) blood-glucose meter (Accu-Chek #1 ea 09/22/24 Guide Glucose Meter) metoprolol succinate 25 mg 25 mg PO DAILY HTN 90 days #90 tabs 11/03/24 tablet,extended release 24 hr hydrocortisone 1 % topical cream 1 applic topical DAILY PRN rash 12/01/24 #28.35 grams Allergies Allergy/AdvReac Type Severity Reaction Status Date / Time No Known Allergies Allergy Verified 09/12/24 13:28 [facility] Disclaimer: The information contained in this section may have been updated after the patient was seen, as this information can be updated by other users. 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 [employer] current occupational exposures/hazards: No caffeine: Yes Have you lived/traveled outside [place] in past 30 days?: No Contact w/someone who lives/traveled outside US past 30 days?: No Exposure to someone with infectious disease in past 14 days?: No Do you have a fever (greater than 100.4 F or 38 C)?: No Have you tested positive for COVID-19: No Exposed to someone with COVID-19 in past 14 days?: No Do you have a sore throat?: No Do you have a cough?: No Do you have any weakness?: No Do you have any diarrhea?: No Are you experiencing any unusual bleeding?: No Do you have any muscle aches/pain?: No Do you have any abdominal pain?: No Are you experiencing loss of taste or smell?: No Other Medical History Have you received the Flu Vaccine for this season: Yes Have you received the Pneumonia Vaccine: Yes ROS Obtained: Yes All systems reviewed & no additional complaints except as documented Physical Exam General General appearance: alert and in no apparent distress Respiratory Respiratory exam: Present normal lung sounds bilaterally; Absent respiratory distress Cardiovascular Cardiovascular exam: Present regular rate and irregular rhythm Abdominal Exam Abdominal exam: Present soft and tenderness (Left lower quadrant); Absent guarding or rebound Comment: Age-indeterminate bruising to the anterior abdomen Rectal Exam Rectal exam: Present hemorrhoids (Internal hemorrhoids with tenderness posterior rectum no blood on digital rectal exam) Neurological Exam Neurological exam: Present alert and oriented X3 Medical Decision Making Medical Records Screening: Per USPSTF and CDC recommendations, given the prevalence of disease in our region, it is our hospital?s policy to screen for HIV and viral Hepatitis for all patients aged 18 and over and those with ongoing risk factors. Sam Inquiry Pt receiving controlled substance: No Vital Signs: 12/01/24 10:28 12/01/24 11:01 12/01/24 11:31 Temperature 98.4 F Temperature Source Oral Pulse Rate 58 L 55 L Pulse Rate [Right] 58 L Respiratory Rate 19 16 16 Blood Pressure 133/74 144/74 H Blood Pressure [Right Arm] 167/88 H Blood Pressure Mean 93 97 Blood Pressure Mean [Right Arm] 114 Blood Pressure Source [Right Arm] Automatic Cuff 02 Sat by Pulse Oximetry 98 97 98 Oxygen Delivery Method Room Air 12/01/24 12:01 12/01/24 12:31 12/01/24 13:00 Temperature Temperature Source Pulse Rate 62 62 62 Pulse Rate [Right] Respiratory Rate 18 16 16 Blood Pressure 133/77 134/85 134/80 Blood Pressure [Right Arm] Blood Pressure Mean 93 101 92 Blood Pressure Mean [Right Arm] Blood Pressure Source [Right Arm] 02 Sat by Pulse Oximetry 97 98 98 Oxygen Delivery Method 12/01/24 13:31 12/01/24 14:00 12/01/24 14:31 Temperature Temperature Source Pulse Rate 59 L 58 L 62 Pulse Rate [Right] Respiratory Rate 14 13 13 Blood Pressure 138/77 138/75 136/74 Blood Pressure [Right Arm] Blood Pressure Mean 97 Blood Pressure Mean [Right Arm] Blood Pressure Source [Right Arm] 02 Sat by Pulse Oximetry 99 98 99 Oxygen Delivery Method Lab Data Lab Results 12/01/24 10:50: WBC 9.9, RBC 3.94 L, Hgb 13.6 L, Hct 39.4 L, MCV 100.0 H, MCH 34.5 H, MCHC 34.5, RDW 12.8, Plt Count 166, MPV 10.2, Neut % (Auto) 81.2 H, Lymph % (Auto) 12.4, [place] % (Auto) 4.5, Eos % (Auto) 0.3, Baso % (Auto) 0.5, Neut # (Auto) 8.0 H, Lymph # (Auto) 1.2, [place] # (Auto) 0.5, Eos # (Auto) 0.0, Baso # (Auto) 0.1, PT 11.4, INR 1.02, Sodium 136, Potassium 4.2, Chloride 102, Carbon Dioxide 27, Anion Gap 11.2, BUN 10, Creatinine 0.70, Estimated Creat Clear 103, Estimated GFR 111, Est GFR ( Amer) 134, Glucose 146 H, Lactate 1.3, Calcium 9.1, Total Bilirubin 1.0, AST 49, ALT 48, Alkaline Phosphatase 76, Total Protein 6.9, Albumin 4.3, Globulin 2.6, Albumin/Globulin Ratio 1.7 12/01/24 11:32: Blood Type O Positive, Antibody Screen Negative 12/01/24 12:20: Urine Color Yellow, Urine Appearance Clear, Urine pH 7.0, Ur Specific [place] 1.015, Urine Protein Negative, Urine Glucose (UA) Negative, Urine Ketones Negative, Urine Blood Negative, Urine Nitrate Negative, Urine Bilirubin Negative, Urine Urobilinogen 0.2, Ur Leukocyte Esterase Negative, Urine RBC Occasional, Urine WBC None, Ur Squamous Epith Cells 5-10, Urine Bacteria 12/01/24 10:50 12/01/24 10:50 Orders (Tests/Meds): ED MEDICATIONS Generic Name Dose Route Start Last Admin Trade Name Freq PRN Reason Stop Dose Admin Sodium Chloride 10 ml 12/01/24 12:17 12/01/24 12:18 Sodium Chloride 0.9% 10ml Syr (Rad Only) IV 12/31/24 12:16 10 ml NEEDED PRN Administration Maintain IV Site Discontinued Medications Generic Name Dose Route Start Last Admin Trade Name Freq PRN Reason Stop Dose Admin Iopamidol 80 ml 12/01/24 12:17 12/01/24 12:18 Iopamidol-370 (76%);100ml Bottle IV 12/01/24 12:18 80 ml ONCE ONE Administration Lactulose 20 gm 12/01/24 13:54 12/01/24 14:19 Lactulose 20gm/30ml Udc PO 12/01/24 13:55 20 gm ONCE ONE Administration Sodium Chloride 50 ml 12/01/24 12:17 12/01/24 12:18 0.9 % Sodium Chloride 50 Ml Vial IV 12/01/24 12:18 50 ml ONCE ONE Administration ORDERS Category Date Time Status Type and Screen Stat BBK 12/01/24 11:[address] angio abd/pel - GI Bleed Stat Cat Scan 12/01/24 11:17 Taken Complete Blood Count Auto Diff Stat Lab 12/01/24 10:50 Completed Comprehensive Metabolic Panel Stat Lab 12/01/24 10:50 Completed Lactic Acid Stat Lab 12/01/24 10:50 Completed Prothrombin Time INR Stat Lab 12/01/24 10:50 Completed UA [Urinalysis and Microscopic] Stat Lab 12/01/24 12:20 Completed Medical Decision Narrative: In summary, this 74-year-old male presents to the emergency department today with rectal pain. On initial evaluation patient is hemodynamically stable satting appropriately on room air afebrile no acute distress. Differential diagnosis includes but is not limited to internal/external hemorrhoid proctitis diverticulitis prostatitis malignancy. Based on these concerns, I ordered CBC CMP PT/INR type and screen UA CTA abdomen pelvis. Patient received milk of molasses enema lactulose for treatment. Labs personally reviewed demonstrate hemoglobin of 13.6 CT imaging personally interpreted demonstrate no bowel stranding, stool within the rectal vault. Patient was given an enema and also lactulose due to fecal impaction and digital rectal exam without palpable fecalith. Patient had improvement in symptoms after production of large bowel movement. Exam is most suspicious for internal hemorrhoids. Amendable to discharge with strict return precautions including development of right red bleeding in stool. Critical Care Critical Care Time Critical Care Time: No
[2024-12-01 11:20] LABS: INR 1.02 (0.9-1.1); Prothrombin Time 11.4 seconds (10.1-12.5)
--- NOTE | 2024-12-01 11:51 | PC.NURSE ---
Called lab to check on status of Chemistry, Lachelle states 10 more min. I confirmed with Dr. Sierra if she would like to wait for chemistry prior to CT scan, states it is OK to wait.
[2024-12-01 11:55] LABS: Alanine Aminotransferase 48 U/L (12-78); Albumin Level 4.3 g/dl (3.5-5.0); Albumin/Globulin Ratio 1.7 (1.1-1.8); Alkaline Phosphatase 76 U/L (38-126); Anion Gap 11.2 mEq/L (5-15); Aspartate Amino Transferase 49 U/L (17-59); Blood Urea Nitrogen 10 mg/dl (9-20); Calcium 9.1 mg/dl (8.4-10.2); Carbon Dioxide 27 mmol/L (22.0-30.0); Chloride 102 mmol/L (98-107); Creatinine Clearance Estimated 103 mL/min (50-200); Estimated Glomerular Filt Rate 111 ml/min (>60); GFR (African American) 134 ML/MIN (>60); Globulin 2.6 g/dL (1.3-3.2); Glucose 146 mg/dl (74-100); Lactic Acid 1.3 mmol/L (0.7-2.1); Potassium 4.2 mmoL/L (3.5-5.1); Sodium 136 mmol/L (136-145); Total Protein,Serum 6.9 g/dl (6.3-8.2)
[2024-12-01] MEDS: SODIUM CHLORIDE 0.9% 10ML SYR (RAD ONLY) 10 ML IV (12:18)
[2024-12-01] MEDS: IOPAMIDOL-370 (76%);100ML BOTTLE 80 ML IV (12:18)
[2024-12-01] MEDS: 0.9 % SODIUM CHLORIDE 50 ML VIAL IV (12:18)
[2024-12-01 12:37] LABS: Microscopic, Urine URINE MICROSCOPIC (MICROSCOPIC)
[2024-12-01 12:41] LABS: Appearance,Urine CLEAR (Clear); Blood, Urine Negative (Negative); Color,Urine YELLOW (Yellow); Nitrate,Urine Negative (Negative)
[2024-12-01 12:46] LABS: RBC,Urine Occasional #/hpf (0-3)
[2024-12-01 12:58] LABS: Specific Gravity, Urine 1.015 (1.005-1.030)
[2024-12-01 12:59] LABS: Ketones,Urine Negative (Negative); Protein,Urine Negative (Negative)
[2024-12-01 13:00] LABS: Glucose,Urine (UA) Negative (Negative)
[2024-12-01 13:01] LABS: Bilirubin,Urine Negative (Negative)
[2024-12-01 13:02] LABS: Leukocyte Esterase,Urine Negative (Negative); Urobilinogen,Urine 0.2 EU/dl (0.2)
--- NOTE | 2024-12-01 13:48 | PC.NURSE ---
er at bedside
[2024-12-01] MEDS: LACTULOSE 20GM/30ML UDC 20 GM PO (14:19)
--- NOTE | 2024-12-01 15:23 | PC.NURSE ---
pt tolerated enema well. had a xlarge bm with relief. er aware.
== END 2024-12-01 15:51 | disposition home or self-care (01) ==
PROVIDERS: Emergency Provider Student in an Organized Health Care Education/Training Program; PCP Family Medicine
DX: K92.2 Gastrointestinal hemorrhage, unspecified (principal)
CPT/HCPCS: 74174; 80053; 81001; 83605; 85025; 85610; 86850; 99285; Q9967

== ENCOUNTER 2024-12-06 09:24 | Outpatient (CLI) | payer MEDICARE, SELFPAY ==
[2024-12-06 17:07] LABS: Microalbumin/Creatinine Ratio 36.7
[2024-12-06 17:11] LABS: Creatinine,Urine Random 180 mg/dL (Not Estab.)
== END 2024-12-06 23:59 | disposition home or self-care (01) ==
LOC: LAB.DROPOF 12-07 12:08
PROVIDERS: PCP Family Medicine; Visit Provider Family Medicine
DX: E11.9 Type 2 diabetes mellitus without complications (principal); Z79.84 Long term (current) use of oral hypoglycemic drugs
CPT/HCPCS: 82043; 82570

== ENCOUNTER 2025-01-09 08:47 | Emergency (ER) | payer MEDICARE, SELFPAY ==
--- NOTE | 2025-01-09 08:52 | ED_ITS ---
Discharge Plan Disposition Patient Disposition: Home, Self-Care Condition: Good Prescriptions Prescriptions: New methocarbamol 750 mg tablet 750 mg PO Q8H Qty: 90 0RF oxycodone 5 mg tablet 5 mg PO Q8H PRN (Reason: pain) 3 Days Qty: 10 0RF lidocaine 5 % adhesive patch,medicated 1 patch topical DAILY PRN (Reason: back pain) 30 Days Qty: 30 0RF Rx Instructions: leave on most painful area for up to 12 hrs No Action Eliquis 5 mg tablet 5 mg PO BID Patient Comments: TAKE 1 TABLET BY MOUTH TWICE DAILY azithromycin 250 mg tablet See Rx Instructions PO .COMPLEX Qty: 6 0RF Rx Instructions: For 250 mg dose pack: take 500 mg today (day 1), then 250 mg for 4 days (days 2-5) PO albuterol sulfate 90 mcg/actuation HFA aerosol inhaler 2 puff inhalation Q4-6H PRN (Reason: shortness of breath or wheezing) Qty: 8.5 3RF ondansetron 4 mg tablet,disintegrating 4 - 8 mg PO BID PRN (Reason: nausea and vomiting) Qty: 20 2RF (DME) Accu-Chek Guide test strips Strip See Rx Instructions .Route Qty: 100 2RF Rx Instructions: TEST GLUCOSE TID (DME) blood-glucose meter [Accu-Chek Guide Glucose Meter] [facility] See Rx Instructions .Route Qty: 1 0RF Rx Instructions: Check glucose TID metoprolol succinate 25 mg tablet extended release 24 hr 25 mg PO DAILY 90 Days Qty: 90 0RF Januvia 100 mg tablet 100 mg PO DAILY Qty: 30 2RF lisinopril 5 mg tablet 5 mg PO DAILY 90 Days Qty: 90 0RF hydrocortisone 1 % cream 1 applic topical DAILY PRN (Reason: rash) Qty: 28.35 0RF Referrals Follow up/Referrals: Michael Horan DO [Staff Physician] - See instructions Eduardo Newell MD [Primary Care Provider] - See instructions Davonte King PT [Physical Therapist] - See instructions Activity Restrictions/Add. Instructions Additional Instructions/Restrictions: As we discussed, it appears based off your workup that your pain is due to degenerative changes in your lumbar spine. I prescribed a muscle relaxer and pain medication for you to use as needed for breakthrough pain. Given that you are on blood thinners, it is not safe for you to use medication such as ibuprofen so I would continue with Tylenol up to 2 g daily. I placed referrals to the orthopedic doctor as well as physical therapy. Please return with any new or worsening symptoms Clinical Impressions Clinical Impression: Low back pain Instructions Patient Instructions: DI for Low Back Pain Print Language Print Language: Samoan Discharge ED Provider: Virgilio Miramontes General Adult HPI General Chief complaint: Back Pain/Injury Stated complaint: R back pain/swelling Time Seen by Provider: 01/09/25 08:52 History of Present Illness HPI narrative: Patient presents for evaluation of right-sided back and flank pain that radiates to his groin. He has had chronic low back pain ongoing for multiple years after traumatic injuries involving a horse. He describes higher, flank pain that has been new in onset and different in character from prior back pain that was gradual in onset starting several days ago, constant, stable in course. Movement exacerbates the pain however he will have waves of pain while sitting as well. It described as throbbing. He denies any dysuria or urinary frequency or history of urolithiasis. He does use Eliquis for history of A-fib. Previous therapies include uxuc-nah-alpnzzo analgesia with limited efficacy. No fevers or chills. No pain elsewhere. Please note that above description of symptoms, in this electronic medical record under categorization of recalled from ER triage doctor by RN are reflective of an initial nursing assessment, however, is not reflective of my full history and physical exam that was personally taken and clarified. Consequentially, this preceding description of symptoms, which may include the patient's categorized chief complaint in the EMR, do not reflect my personal clinical impression, and the ultimate description of history of present illness and patient stated complaints should be deferred to this section of the note. Unless stated otherwise or congruent with this section of the note, additional signs, symptoms, or incongruence should be interpreted as inaccurate with my clinical impression. Related Data Home Medications ?Medication ?Instructions ?Recorded ?Confirmed apixaban 5 mg tablet (Eliquis) 5 mg PO BID a-fib 09/16/23 12/06/24 Previous Rx's ?Medication ?Instructions ?Recorded blood sugar diagnostic (Accu-Chek #100 ea 09/22/24 Guide test strips) blood-glucose meter (Accu-Chek #1 ea 09/22/24 Guide Glucose Meter) metoprolol succinate 25 mg 25 mg PO DAILY HTN 90 days #90 tabs 11/03/24 tablet,extended release 24 hr hydrocortisone 1 % topical cream 1 applic topical DAILY PRN rash 12/01/24 #28.35 grams sitagliptin phosphate 100 mg 100 mg PO DAILY #30 tabs 12/04/24 tablet (Januvia) albuterol sulfate 90 mcg/actuation 2 puff inhalation Q4-6H PRN 12/06/24 aerosol inhaler shortness of breath or wheezing #8.5 grams azithromycin 250 mg tablet See Rx Instructions PO .COMPLEX #6 12/06/24 tabs ondansetron 4 mg disintegrating 4 - 8 mg (1 - 2 x 4 mg) PO BID PRN 12/06/24 tablet nausea and vomiting #20 tabs lisinopril 5 mg tablet 5 mg PO DAILY HTN 90 days #90 tabs 12/22/24 lidocaine 5 % topical patch 1 patch topical DAILY PRN back 01/09/25 pain 30 days #30 ea methocarbamol 750 mg tablet 750 mg PO Q8H #90 tabs 01/09/25 oxycodone 5 mg tablet 5 mg PO Q8H PRN pain 3 days #10 01/09/25 tabs Allergies Allergy/AdvReac Type Severity Reaction Status Date / Time No Known Allergies Allergy Verified 12/06/24 09:35 [facility] Disclaimer: The information contained in this section may have been updated after the patient was seen, as this information can be updated by other users. 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 [employer] current occupational exposures/hazards: No caffeine: Yes Other Medical History Have you received the Flu Vaccine for this season: Yes Have you received the Pneumonia Vaccine: Yes ROS Obtained: Yes other As per HPI Physical Exam General General appearance: alert and in no apparent distress Head Head exam: atraumatic and normocephalic Eye Eye exam: Present normal appearance Neck Neck exam: Present normal inspection Chest Chest inspection: Present normal inspection and symmetric chest wall rise Respiratory Respiratory exam: Present normal lung sounds bilaterally; Absent respiratory distress Cardiovascular Cardiovascular exam: Present regular rate and normal rhythm Abdominal Exam Abdominal exam: Present soft Neurological Exam Neurological exam: Present alert and oriented X3 Psychiatric Psychiatric exam: Present normal affect and normal mood Skin Skin exam: Present warm and dry Medical Decision Making Medical Records Medical records reviewed: Yes I reviewed the patient's medical records. Screening: Per USPSTF and CDC recommendations, given the prevalence of disease in our region, it is our hospital?s policy to screen for HIV and viral Hepatitis for all patients aged 18 and over and those with ongoing risk factors. Sam Inquiry Pt receiving controlled substance: No Vital Signs: 01/09/25 09:03 01/09/25 11:02 01/09/25 11:30 Temperature 97.7 F Temperature Source Oral Pulse Rate 61 52 L Pulse Rate [Left Radial] 52 L Respiratory Rate 17 20 Blood Pressure 134/75 107/68 L Blood Pressure [Right Arm] 153/81 H Blood Pressure Mean [Right Arm] 105 Blood Pressure Source Blood Pressure Source [Right Arm] Automatic Cuff Blood Pressure Position Blood Pressure Position [Right Arm] Sitting 02 Sat by Pulse Oximetry 98 100 98 Oxygen Delivery Method Room Air Room Air 01/09/25 12:00 01/09/25 12:57 Temperature 97.9 F Temperature Source Oral Pulse Rate 60 60 Pulse Rate [Left Radial] Respiratory Rate 17 Blood Pressure 108/65 L 112/61 Blood Pressure [Right Arm] Blood Pressure Mean [Right Arm] Blood Pressure Source Automatic Cuff Blood Pressure Source [Right Arm] Blood Pressure Position Sitting Blood Pressure Position [Right Arm] 02 Sat by Pulse Oximetry 97 Oxygen Delivery Method Room Air Lab Data Lab Results 01/09/25 10:03: WBC 7.7, RBC 3.79 L, Hgb 13.1 L, Hct 37.5 L, MCV 98.9 H, MCH 34.6 H, MCHC 34.9, RDW 12.7, Plt Count 177, MPV 9.8, Neut % (Auto) 71.6, Lymph % (Auto) 20.4, [place] % (Auto) 6.2, Eos % (Auto) 0.5, Baso % (Auto) 0.4, Neut # (Auto) 5.5, Lymph # (Auto) 1.6, [place] # (Auto) 0.5, Eos # (Auto) 0.0, Baso # (Auto) 0.0, Sodium 135 L, Potassium 4.2, Chloride 102, Carbon Dioxide 24, Anion Gap 13.2, BUN 13, Creatinine 0.70, Estimated Creat Clear 93, Estimated GFR 111, Est GFR ( Amer) 134, Glucose 162 H, Calcium 8.9, Total Bilirubin 0.6, AST 34, ALT 19, Alkaline Phosphatase 66, Total Protein 7.4, Albumin 4.0, Globulin 3.4 H, Albumin/Globulin Ratio 1.2 01/09/25 11:23: Urine Color Yellow, Urine Appearance Clear, Urine pH 6.0, Ur Specific [place] 1.010, Urine Protein Negative, Urine Glucose (UA) Negative, Urine Ketones Negative, Urine Blood Negative, Urine Nitrate Negative, Urine Bilirubin Negative, Urine Urobilinogen 0.2, Ur Leukocyte Esterase Negative, Urine RBC None, Urine WBC None, Ur Squamous Epith Cells Occasional, Urine Bacteria None 01/09/25 10:03 01/09/25 10:03 Orders (Tests/Meds): ED MEDICATIONS Discontinued Medications Generic Name Dose Route Start Last Admin Trade Name Freq PRN Reason Stop Dose Admin Iopamidol 80 ml 01/09/25 10:53 01/09/25 10:54 Iopamidol-370 (76%);100ml Bottle IV 01/09/25 10:54 80 ml ONCE ONE Administration Sodium Chloride 10 ml 01/09/25 10:53 01/09/25 10:54 Sodium Chloride 0.9% 10ml Syr (Rad Only) IV 01/09/25 10:54 10 ml ONCE ONE Administration Sodium Chloride 50 ml 01/09/25 10:53 01/09/25 10:53 0.9 % Sodium Chloride 50 Ml Vial IV 01/09/25 10:54 50 ml ONCE ONE Administration ORDERS Category Date Time Status CT angio abdomen pelvis Stat Cat Scan 01/09/25 09:[address] bony pelvis Stat Cat Scan 01/09/25 09:[address] lumbar spine wo con Stat Cat Scan 01/09/25 09:51 Completed POCUS Point of Care (ER Only) Stat Exams 01/09/25 09:41 Completed CBC w/Auto Diff [Complete Blood Count Auto Diff] Stat Lab 01/09/25 10:03 Completed CMP [Comprehensive Metabolic Panel] Stat Lab 01/09/25 10:03 Completed Urinalysis and Microscopic Stat Lab 01/09/25 11:23 Completed Medical Decision Narrative: Patient with history and exam per above presenting for evaluation of back pain, flank pain Diagnoses considered include urolithiasis, pyelonephritis, referred pain from aortic pathology, in the setting of history of atrial fibrillation, constellation of symptoms could represent embolic renal infarction, given geriatric age threshold for imaging of abdomen for evaluation of referred pain from intra-abdominal pathology high ED workup and treatment included: ED MEDICATIONS Discontinued Medications Generic Name Dose Route Start Last Admin Trade Name Freq PRN Reason Stop Dose Admin Iopamidol 80 ml 01/09/25 10:53 01/09/25 10:54 Iopamidol-370 (76%);100ml Bottle IV 01/09/25 10:54 80 ml ONCE ONE Administration Sodium Chloride 10 ml 01/09/25 10:53 01/09/25 10:54 Sodium Chloride 0.9% 10ml Syr (Rad Only) IV 01/09/25 10:54 10 ml ONCE ONE Administration Sodium Chloride 50 ml 01/09/25 10:53 01/09/25 10:53 0.9 % Sodium Chloride 50 Ml Vial IV 01/09/25 10:54 50 ml ONCE ONE Administration ORDERS Category Date Time Status CT angio abdomen pelvis Stat Cat Scan 01/09/25 09:[address] bony pelvis Stat Cat Scan 01/09/25 09:[address] lumbar spine wo con Stat Cat Scan 01/09/25 09:51 Completed POCUS Point of Care (ER Only) Stat Exams 01/09/25 09:41 Completed CBC w/Auto Diff [Complete Blood Count Auto Diff] Stat Lab 01/09/25 10:03 Completed CMP [Comprehensive Metabolic Panel] Stat Lab 01/09/25 10:03 Completed Urinalysis and Microscopic Stat Lab 01/09/25 11:23 Completed Labs were independently interpreted by me, significant for no acute findings Imaging was independently visualized and interpreted by me, significant for no acute findings, age-related degenerative changes Please refer to radiology report for full details. My clinical impression at this time is most consistent with age-related degenerative changes precipitating acute on chronic radicular back pain I discussed my clinical impression with patient and answered all questions. At this time, the evidence for any other entities in the differential is insufficient to warrant any further testing or ED observation. This was explained to the patient. The patient was advised that persistent or worsening symptoms require further evaluation. Critical Care Critical Care Time Critical Care Time: No
[2025-01-09 09:03] VITALS: BP 153/81; PULSE 52; RESP 17; TEMP 36.5; O2SAT 98; BMI 30.7
--- NOTE | 2025-01-09 09:50 | CT_ITS ---
FINAL REPORT TECHNIQUE: Thin section axial images were obtained through the abdomen after contrast injection per CT angiogram protocol. Multiplanar reconstruction images were obtained from the axial data. This exam was performed with techniques to keep radiation dose as low as reasonably achievable. This includes automated exposure control, adjustment of the MA and KVP, and iterative reconstruction technique. CLINICAL HISTORY: R sided flank pain, hx AF, ?renal infarct vs stone COMPARISON: 12/01/2024 FINDINGS: CTA: No abdominal aortic aneurysm or aortic dissection. The celiac axis, superior mesenteric artery, and inferior mesenteric artery are patent without stenosis. There is an accessory right renal artery. Both are patent without stenosis. The left renal artery is patent. The common iliac arteries and visualized portions of the internal and external iliac arteries are patent. No significant stenosis. NONVASCULAR: The gallbladder is present. The solid abdominal organs are without acute abnormality. The GI tract is without acute abnormality. There is a moderate to large amount of retained stool in the colon. There is slightly less stool in the rectum from the prior exam. No lymphadenopathy or free fluid. IMPRESSION: No evidence of abdominal aortic aneurysm or dissection. No significant stenosis. No change from the prior exam. Persistent constipation with less in the rectum than on the prior exam. Reviewed, Interpreted and Dictated by Renata Grimes MD Transcribed by Harmony Radford Authenticated and . [facility]
--- NOTE | 2025-01-09 09:51 | CT_ITS ---
FINAL REPORT TECHNIQUE: Axial images through the pelvis were performed by computed tomography. This study was performed with techniques to keep radiation doses as low as reasonably achievable (ALARA). Individualized dose reduction techniques using automated exposure control or adjustment of mA and/or kV according to the patient's size were employed. CLINICAL HISTORY: low back pain, pmh trauma FINDINGS: CT PELVIS There is no x-ray of the pelvis or either hip. There is degenerative joint disease of the hips and sacroiliac joints bilaterally. No acute soft tissue abnormality is seen. IMPRESSION: No acute fracture. Degenerative joint disease. Reviewed, Interpreted and Dictated by Renata Grimes MD Transcribed by Harmony Radford Authenticated and [facility]
--- NOTE | 2025-01-09 09:51 | CT_ITS ---
FINAL REPORT TECHNIQUE: Thin section axial images were obtained through the lumbar spine without contrast. Sagittal and coronal reconstruction images were obtained from the axial data. Exam was performed using dose reduction techniques. CLINICAL HISTORY: low back pain, pmh trauma FINDINGS: There is no acute fracture or acute malalignment of the lumbar spine. Vertebral body height is preserved. There is mild multilevel degenerative disease with disc space narrowing and osteophyte formation most pronounced in the mid lumbar spine. There is no significant central stenosis. Paraspinal soft tissues are within normal limits. There is no paraspinal mass or fluid collection. IMPRESSION: No acute abnormality of the lumbar spine. Mild multilevel degenerative disease. Reviewed, Interpreted and Dictated by Renata Grimes MD Transcribed by Angie Knox Authenticated and [facility]
[2025-01-09 10:11] LABS: Basophils % 0.4 % (0.1-2.0); Eosinophils % 0.5 % (0.1-12.0); Hematocrit 37.5 % (42.0-52.0); Hemoglobin 13.1 g/dL (14.1-18.0); Lymphocytes # 1.6 K/mm3 (0.7-4.5); Lymphocytes % 20.4 % (10-50); Mean Corpuscular HGB Conc 34.9 g/dL (31.8-35.4); Mean Corpuscular Hemoglobin 34.6 pg (27.0-31.2); Mean Corpuscular Volume 98.9 fl (80-94); Mean Platelet Volume 9.8 fl (7.4-10.4); Monocytes # 0.5 K/mm3 (0.1-1.0); Monocytes % 6.2 % (1.7-9.3); Neutrophils # 5.5 K/mm3 (1.8-7.8); Neutrophils % 71.6 % (37.0-80.0); Nucleated Red Blood Cells # 0 10^3/uL; Nucleated Red Blood Cells % 0 %; Platelet Count 177 K/mm3 (142-424); Red Blood Count 3.79 M/mm3 (4.60-6.20); Red Cell Distribution Width 12.7 % (11.5-17.5); Red Cell Distribution Width-SD 45.8 fL; White Blood Count 7.7 K/mm3 (4.8-10.8)
[2025-01-09 10:22] LABS: Chloride 102 mmol/L (98-107); Sodium 135 mmol/L (136-145)
[2025-01-09 10:23] LABS: Potassium 4.2 mmoL/L (3.5-5.1)
[2025-01-09 10:25] LABS: Alanine Aminotransferase 19 U/L (12-78); Anion Gap 13.2 mEq/L (5-15); Aspartate Amino Transferase 34 U/L (17-59); Blood Urea Nitrogen 13 mg/dl (9-20); Carbon Dioxide 24 mmol/L (22.0-30.0); Creatinine Clearance Estimated 93 mL/min (50-200); Estimated Glomerular Filt Rate 111 ml/min (>60); GFR (African American) 134 ML/MIN (>60)
[2025-01-09 10:26] LABS: Albumin/Globulin Ratio 1.2 (1.1-1.8); Alkaline Phosphatase 66 U/L (38-126); Bilirubin,Total 0.6 mg/dl (0.2-1.3); Calcium 8.9 mg/dl (8.4-10.2); Globulin 3.4 g/dL (1.3-3.2); Glucose 162 mg/dl (74-100); Total Protein,Serum 7.4 g/dl (6.3-8.2)
--- NOTE | 2025-01-09 10:43 | PC.NURSE ---
pt going to ct at this time. alondra
[2025-01-09] MEDS: 0.9 % SODIUM CHLORIDE 50 ML VIAL IV (10:53)
[2025-01-09] MEDS: SODIUM CHLORIDE 0.9% 10ML SYR (RAD ONLY) 10 ML IV (10:54)
[2025-01-09] MEDS: IOPAMIDOL-370 (76%);100ML BOTTLE 80 ML IV (10:54)
[2025-01-09 11:02] VITALS: BP 134/75; PULSE 61; RESP 20; O2SAT 100
[2025-01-09 11:27] LABS: Microscopic, Urine URINE MICROSCOPIC (MICROSCOPIC)
[2025-01-09 11:30] VITALS: BP 107/68; PULSE 52; O2SAT 98
[2025-01-09 11:50] LABS: Appearance,Urine CLEAR (Clear); Bilirubin,Urine Negative (Negative); Blood, Urine Negative (Negative); Color,Urine YELLOW (Yellow); Glucose,Urine (UA) Negative (Negative); Ketones,Urine Negative (Negative); Leukocyte Esterase,Urine Negative (Negative); Nitrate,Urine Negative (Negative); Protein,Urine Negative (Negative); Urobilinogen,Urine 0.2 EU/dl (0.2)
[2025-01-09 12:00] VITALS: BP 108/65; PULSE 60; O2SAT 97
[2025-01-09 12:01] LABS: Squamous Epithelial Cell,Urine Occasional #/hpf (0-5)
--- NOTE | 2025-01-09 12:05 | PC.NURSE ---
called RAD for CT read updates. Tamar reported that the chart was locked and was hopefully being read.
--- NOTE | 2025-01-09 12:55 | PC.NURSE ---
rounded on pt. pt still reports pain but refused any medication at this time. stated i just want to know whats wrong with me, i dont need any medicine right now.
[2025-01-09 12:57] VITALS: BP 112/61; PULSE 60; RESP 17; TEMP 36.6; O2SAT 95
== END 2025-01-09 13:13 | disposition home or self-care (01) ==
PROVIDERS: Emergency Provider Emergency Medicine; PCP Family Medicine
DX: M54.50 Low back pain, unspecified (principal)
CPT/HCPCS: 99285; 72131; 72192; 74174; 80053; 81001; 85025; Q9967

== ENCOUNTER 2025-01-26 14:46 | Outpatient (CLI) | payer MEDICARE, SELFPAY ==
--- NOTE | 2025-01-26 17:15 | MR_ITS ---
FINAL REPORT CLINICAL HISTORY: low back pain that radiates into the right leg and testicle FINDINGS: Multiplanar MR imaging of the lumbar spine was performed without contrast. On the sagittal T2-weighted images, there is abnormal decreased signal throughout the lumbar discs. There is moderate loss of height at L2-3 and L3-4. The vertebral alignment is normal. L1-2: There is no significant canal stenosis or neural foraminal narrowing. L2-3: There is a mild diffuse disc bulge and posterior lateral disc protrusions. There is moderate right and mild left neuroforaminal narrowing. L3-4: There is a moderate diffuse disc bulge and posterior lateral disc protrusions. There is mild to moderate right and moderate to high-grade left neuroforaminal narrowing. L4-5: There is a moderate diffuse disc bulge. There is moderate bilateral facet hypertrophy. There is moderate to high-grade bilateral neuroforaminal narrowing. L5-S1: There is a moderate diffuse disc bulge and endplate hypertrophy, eccentric to the right. There is high-grade right and moderate to high-grade left neuroforaminal narrowing. IMPRESSION: Changes of degenerative disc disease with neuroforaminal narrowing most evident on the right at L5-S1. Reviewed, Interpreted and Dictated by Alejo John MD Transcribed by Harmony Radford Authenticated and [facility]
== END 2025-01-26 23:59 | disposition home or self-care (01) ==
PROVIDERS: PCP Family Medicine; Visit Provider Family Medicine
DX: M54.50 Low back pain, unspecified (principal)
CPT/HCPCS: 72148

== ENCOUNTER 2025-02-21 16:00 | Outpatient (RCR) | payer MEDICARE, SELFPAY ==
--- NOTE | 2025-02-13 16:03 | HMH.PTOPEV ---
PT Outpatient Evaluation Rehab PT Outpatient Evaluation Start: 02/13/25 15:01 Freq: Status: Active Protocol: Document 02/13/25 15:02 PDESEROUX (Rec: 02/13/25 16:02 [email or web address] [id number]) E-signed By Abhijit Glass, PT Outpatient Therapy Subjective History Subjective History Pt. is a 74 year old male who presents to [facility] in [place] for the outpatient initial evaluation this date( 02/13/25) w/ c/o subacute and constant R-sided lumbar and RLE P!, spasms, and tingling of traumatic onset 5 weeks ago . Pt. reports he was bending over applying horse shoes to his horse when the horse jerked pt. as SHANNON. Pt. reports symptomatic P! didn't get better and was worsening throughout the initial wk. that he admitted self to the E .R. Pt. reports having CT scan and MRI that indicated deterioration of the lumbar spine. Pt denies having any injections for current complaint. Pt. reports having some symptom relief w/ prescribed muscle relaxer. Pt. reports symptoms in the R- sided lumbar region are constant and at a 2/10 ache this date. Pt. reports symptoms can worsen to a 10/10 and will radiate into the RLE . Pt. c/o tingling into the RLE foot initially, and referral P! to the R testicle, however, vocalizes those symptoms are more intermittent now. Pt. reports symptoms will worsen w/ lifting any weight objects including a bag of feed, or bending over activities. Pt. reports riding his horse was okay during, however, symptoms worsened afterwards. Pt. denies any changes to bowel/bladder dysfunction. Pt. RTMD in March. Current medications include Lisinopril, Muscle relaxer, Eliquis, Metoprolol, and Januvia. PMH includes A-fib., DM-II, Hypertension, and S/P RLE carrera laceration. New diagnosis of cancer in past 12 No months? Chief Complaint Pain,Spasms,Stiff,Gives out/ Unstable,Paresthesia Symptom Type Ache,Sharp,Stabbing,Numbness, Tingling,Shooting Symptoms Relieved By Nothing,Rest/Positioning,Ice, Prescription Meds Symptoms Aggravated By Standing,Bending/Stooping, Twisting,Lifting Prior Functional Limitations None Current Functional Limitations Lifting,Housework,Sleeping, Standing,Walking,Bending/ Stooping Symptom Description Constant but Variable,Activity Dependent Level of pain today (0-10) 2 Pain scale - at its best (0-10) 1 Pain scale - at its worst (0-10) 10 Lumbopelvic Eval Posture Thoracic Spine Posture Standing Position Increased Kyphosis Lumbar Spine Posture Standing Position Flattened Assistive device Assistive Devices None / NA Gait Observation General Gait Pattern Observation Antalgic Gait,Decrease Weight Bear (R),Decrease Stride Lngth (L) Palapation tenderness right lumbar spinal tenderness Yes paraspinal tenderness Yes Lumbar/Sacral Palpation Findings Tenderness Lumbar/Sacral Palpation Overall Comment grade 3 +TTP Accessory Movement L-spine Vertebrae Accessory Movements Central P/A [place],Right P/A that Elicit Symptoms [place] L3 right,bilateral L4 right,bilateral L5 right,bilateral S1 right,bilateral Range of Motion Lumbar Spine Active Flexion Range of 64 Motion (degrees) Lumbar Spine Active Extension Range of 12 Motion (degrees) Left Lumbar Spine Lateral Flexion Active 11 Range of Motion (degrees) Right Lumbar Spine Lateral Flexion 14 Active Range of Motion (degrees) Lumbar Spine ROM Limitations Soft Tissue Tightness,Muscle Weakness,Muscle Tone,Pain Manual Muscle Test Right Knee Extension Strength Grade 4 Good Knee Flexion Strength Grade 4 Good Hip Flexion Strength Grade 3+ Fair+ Hip Abduction Strength Grade 4 Good Hip Adduction Strength Grade 4 Good Hip External Rotation Strength Grade 4 Good Hip Internal Rotation Strength Grade 4 Good Hip Extension Strength Grade 4 Good Gluteus Savage Strength Grade 4 Good Extensor Hallucis Longus Strength Grade 4 Good Ankle Dorsiflexion Strength Grade 4 Good Gastronemius/Soleus Strength Grade 4 Good DTR Rt Patellar 0 Lt Patellar 0 Rt Gastroc/Soleus 0 Lt Gastroc/Soleus 0 Altered Sensation Bilateral Comment Pt. vocalized symmetrical light touch sensation in BLEs grossly Special Tests Lumbar Spine Screen Positive Hip Scouring (Quadrant) Test Positive Right Hip Piriformis Test Positive Right Sciatic Nerve Tension Test Negative Right Unilateral Straight Leg Raise (Lasegue) Positive Right Test Bilateral Straight Leg Raise Test Positive Chintan Test Positive Lumbar Long [place] Distraction Test/Manual Positive Traction Outpatient Therapy Assessment Impairments Problems/Impairmments Palpation Tenderness,Impaired Range of Motion,Impaired Strength,Impaired Endurance, Impaired Gait Pattern,Impaired Walking,Impaired Standing, Impaired Lifting,Impaired Household Care,Impaired Bending,Impaired Work Activities,Subjective C/O Pain ,Impaired Self Care/Self Management Prognosis Rehab Potential Good Comment w/ HEP compliancy Clinical Impression Consistent with Diagnosis Yes Consistent with lumbar radiculopathy, R Short Term Goals Number of Weeks 2 Decreased Palpation Tenderness Yes: grade 2 +TTP Decrease Subjective C/O Pain Yes: worse:02/03 Patient to be Ind w/ HEP Yes Care Home Goals Number of Weeks 4-6 Decreased Palpation Tenderness Yes: grade 1 +TTP Increase Range of Motion Yes: lumbar spine AROM >75% norms grossly Increase Strength Yes: 4+ to 5/5 RLE hip MMT scores grossly Improve Transfers Yes: Pt. will be able to stand up from a seated position w/o difficulty Improve Gait Pattern without Assistive Yes Device Increase Ability to Walk Yes Increase Ability to Stand Yes Improve Ability to Dress Self Yes: Pt. will be able to put socks and shoes on w/o difficulty Return to Recreational Activities Yes: Pt. 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 Improve Oswestry Score Yes Decrease Subjective C/O Pain Yes: worse:-11/06 Patient to be Ind w/ Advanced HEP Yes Outpatient Therapy Plan of Care Treatment Plan May Include Therapeutic Exercise Including Home Yes Exercise Program Manual Therapy Techniques Yes Neuromuscular Re-education Yes Therapeutic Activities to Return to Yes Previous Functional/Work Level ADL/Self Care Education Yes Mechanical Traction Yes Dry Needling Yes Thermal Modalities Yes Electrical Stimulation Yes Ultrasound/Phonophoresis Yes Iontophoresis Yes Vasopneumatic Compression Pump Yes Massage Yes Eval/Re-Eval Yes Frequency Times per week 2 Duration Number of Weeks 4-6 Addendums This patient is a candidate for social No or vocational rehab? Patient/Guardian verbally acknowledges Yes understanding of treatment program and consents to further treatment? Patient/Guardian verbally acknowledges Yes understanding of diagnosis, prognosis and goals for treatment? Eval Complexity PT Charges 16450 - Moderate Complexity Shoulder/Elbow Eval Shoulder Objective Measurements Elbow Objective Measurements PHYSICIAN CERTIFICATION: I certify the specified therapy services for Emerson Cook are required, authorized, and reviewed every 30 days.
== END 2025-02-21 23:59 | disposition home or self-care (01) ==
LOC: PT 16:00
PROVIDERS: PCP Family Medicine; Visit Provider Family Medicine
DX: M54.50 Low back pain, unspecified (principal)
CPT/HCPCS: 97110; 97140; 97163

== ENCOUNTER 2025-03-13 16:00 | Outpatient (RCR) | payer MEDICARE, SELFPAY | END 2025-03-13 23:59 | disposition home or self-care (01) | LOC: PT.CARL 16:00 | PROVIDERS: PCP Family Medicine; Visit Provider Family Medicine | DX: M54.50 Low back pain, unspecified (principal) | CPT/HCPCS: 97110; 97112 ==